=== PATIENT | female | born 1960 | race Caucasian/White ===

== ENCOUNTER 2023-02-08 09:43 | Emergency (ER) | payer OTHER ==
[~2023-02-08] VITALS: Ht 160 cm; Wt 68.0 kg
[2023-02-08 10:07] VITALS: BP 151/79; PULSE 86; RESP 16; TEMP 97.6; O2SAT 99
[2023-02-08] MEDS ORDERED: KETOROLAC 60 MG/2 ML VIAL IM ONE (10:55)
[2023-02-08 11:46] LABS: APPEARANCE,URINE CLOUDY (CLEAR); BILIRUBIN,URINE NEGATIVE (NEGATIVE); BLOOD, URINE 2+ (NEGATIVE); COLOR,URINE AMBER (YELLOW); LEUKOCYTE ESTERASE ,URINE 3+ (NEGATIVE); NITRITE, URINE POSITIVE (NEGATIVE); PH,URINE 6.5 (5.0-9.0); PROTEIN,URINE 1+ (NEGATIVE); UGLUCOSE 1+ (NEGATIVE)
[2023-02-08 11:57] LABS: BACTERIA,URINE >30 (MANY) /HPF (None Seen); RBC,URINE 11-20 (MOD) /HPF (0-5); SQUAMOUS EPITHELIAL CELL,UR 0-3 (FEW) /LPF (0-3 (FEW))
[2023-02-08] MEDS ORDERED: OMEP40EC24 PO (12:08)
[2023-02-08] MEDS ORDERED: ONDA8TAB87 PO (12:08)
[2023-02-08] MEDS ORDERED: CIPR500T4 PO (12:08)
[2023-02-08 12:28] VITALS: BP 141/64; PULSE 78; RESP 14; TEMP 97.4; O2SAT 100
== END 2023-02-08 12:28 | disposition home or self-care (01) ==
LOC: MED 09:43
DX: R11.2 Nausea with vomiting, unspecified (principal); N39.0 Urinary tract infection, site not specified; E11.9 Type 2 diabetes mellitus without complications; I10 Essential (primary) hypertension; Z90.49 Acquired absence of other specified parts of digestive tract
CPT/HCPCS: 81001; 87086; 96372; 99283; J1885